=== PATIENT | female | born 1970 | race Two or more races ===

== ENCOUNTER 2024-10-01 11:40 | Emergency (ER) | payer OTHER ==
[~2024-10-01] VITALS: Ht 160 cm; Wt 90.7 kg
[~2024-10-01 11:40] MED LIST: NORVASC10 MG
[2024-10-01] MEDS ORDERED: LIPITOR40 M1 PO (12:13)
[2024-10-01] MEDS ORDERED: ADULT LOW DOSE81 M1 PO (12:13)
[2024-10-01] MEDS ORDERED: HORIZANT300 MG PO (12:13)
[2024-10-01] MEDS ORDERED: PROTONIX40 MG PO (12:13)
[2024-10-01] MEDS ORDERED: ASPRUZYO SPRIN500 MG PO (12:13)
[2024-10-01] MEDS ORDERED: TOPROL XL50 M1 PO (12:14)
[2024-10-01] MEDS ORDERED: ISOSORBIDE MONO60 MG PO (12:14)
[2024-10-01] MEDS ORDERED: ELIQUIS5 MG (12:14)
[2024-10-01] MEDS ORDERED: SYNTHROID50 MCG PO (12:14)
[2024-10-01] MEDS ORDERED: CLONAZEPAM1 MG PO (12:15)
[2024-10-01] MEDS ORDERED: LASIX20 MG PO (12:15)
[2024-10-01 14:14] LABS: BASO % 0.9 % (0.1-1.2); EOS # 0.12 (0.04-0.54); EOS % 1.9 % (0.7-7.0); HEMATOCRIT 39.5 % (34.1-44.9); HEMOGLOBIN 13.4 g/dL (11.2-15.7); LYMPH # 2.63 (1.18-3.74); LYMPH % 41.5 % (19.3-53.1); MEAN CORPUSCULAR HEMOGLOBIN 30.4 pg (25.6-32.2); MONO # 0.63 (0.24-0.82); NEUT # 2.88 (1.56-6.13); NEUT % 45.5 % (34.0-71.1); PLATELET COUNT 448 K/uL (163-369); RED BLOOD COUNT 4.41 M/uL (3.93-5.22); RED CELL DISTRIBUTION WIDTH 16.5 % (11.6-14.4)
[2024-10-01 14:48] LABS: ALBUMIN 3.9 gm/dL (3.4-5.0); BILIRUBIN TOTAL 1.07 mg/dL (0.3-1.2); BILIRUBIN,CONJUGATED 0.24 mg/dL (0.0-0.2); BILIRUBIN,UNCONJUGATED 0.83 mg/dL (0.0-0.6); CALCIUM 9.2 mg/dL (8.5-10.1); CREATININE SERUM 1.05 mg/dL (0.55-1.02); GFR 54.61; POTASSIUM 3.74 mEq/L (3.5-5.1); TOTAL PROTEIN 8.2 gm/dL (6.4-8.2)
== END 2024-10-01 17:04 | disposition home or self-care (01) ==
LOC: ER 14:16
PROVIDERS: General Practice
DX: M79.605 Pain in left leg (principal); I10 Essential (primary) hypertension; I50.9 Heart failure, unspecified; Z88.8 Allergy status to other drugs, medicaments and biological substances